=== PATIENT | male | born 1975 | race Hispanic/Latino ===

== ENCOUNTER → 2016-12-28 | Outpatient (CLI) | payer OTHER ==
[~2016-12-28] MED LIST: CIPR500T89 PO; EZET10TA PO; KETO10TAB PO; SIMV40TA2 PO
[2016-12-29 14:11] LABS: PSA TOTAL 1.1 ng/mL (0.0-4.0)
== END ==
LOC: M SMT 09:57
PROVIDERS: ATTEND Nurse Practitioner Family
DX: N40.2 Nodular prostate without lower urinary tract symptoms (principal)
CPT/HCPCS: 36415; 84154; G0463

== ENCOUNTER 2017-01-11 15:13 | Emergency (ER) | payer OTHER ==
[~2017-01-11] VITALS: Ht 165.1 cm; Wt 86.2 kg
[2017-01-11] MEDS ORDERED: EZET10TA PO (15:32)
[2017-01-11] MEDS ORDERED: SIMV40TA2 PO (15:32)
[2017-01-11] MEDS ORDERED: CIPR500T89 PO ×2 (15:32→20:00)
[2017-01-11] MEDS ORDERED: fentaNYL 100 MCG/2 ML INJECTION (J3010) IV ONE ×2 (16:30→18:45)
[2017-01-11] MEDS ORDERED: ONDANSETRON 4MG/2ML VIAL (J2405) IV ONE (16:30)
[2017-01-11] MEDS ORDERED: NS 1,000 ML IV ONE (16:30)
[2017-01-11 16:37] LABS: BASO % 0.3 % (0.0-1.0); EOS # 0.1 K/mm3 (0.0-0.50); EOS % 0.9 % (0.0-3.0); LARGE UNSTAINED CELL # 0.1 K/mm3 (0.0-0.4); LARGE UNSTAINED CELL % 0.5 % (0.0-4.0); LYMPH # 0.8 K/mm3 (1.5-4.5); LYMPH % 4.6 % (24.0-44.0); MEAN CORPUSCULAR HEMOGLOBIN 31.7 pg (27.0-33.0); MEAN CORPUSCULAR HGB CONC 34.9 g/dl (32.0-36.5); MEAN CORPUSCULAR VOLUME 90.9 fl (80.0-96.0); MONO # 0.5 K/mm3 (0.0-0.8); MONO % 2.9 % (0.0-5.0); NEUTROPHILS # 14.4 K/mm3 (1.8-7.7); NEUTROPHILS % 90.8 % (36.0-66.0); PLATELET COUNT, AUTOMATED 172 k/mm3 (150-450); RED CELL DISTRIBUTION WIDTH 12.7 % (11.5-14.5); WHITE BLOOD COUNT 15.8 K/mm3 (4.0-10.0)
[2017-01-11 16:56] LABS: ANION GAP 11 MEQ/L (8-16); BLOOD UREA NITROGEN 11 MG/DL (7-18); CARBON DIOXIDE LEVEL 23 MEQ/L (21-32); CHLORIDE LEVEL 106 MEQ/L (98-107); CREATININE FOR GFR 1.17 MG/DL (0.70-1.30); GLOMERULAR FILTRATION RATE > 60.0 (>60); GLUCOSE, FASTING 119 MG/DL (70-105); POTASSIUM SERUM 3.7 MEQ/L (3.5-5.1); SODIUM LEVEL 140 MEQ/L (136-145)
[2017-01-11] MEDS ORDERED: ISOVUE-370 76% 100ML VIAL (Q9967) As Ordered ONE (17:01)
--- NOTE | 2017-01-11 18:25 | REP ---
CT study of the pelvis with IV but without oral contrast: History: The patient is status post prostate biopsy, evaluate for hemorrhage. Findings: There is diverticulosis affecting the sigmoid and distal descending segments of the colon without CT evidence of diverticulitis. No free air is seen. Normal appendix is observed. There is no evidence of pelvic floor or extraperitoneal hematoma. There is some post biopsy edema in the perirectal fat particularly anteriorly where there are also several bubbles of post biopsy air between the rectum and the prostate. Prostate gland is mildly enlarged. There is some peripheral periprostatic contrast enhancement consistent with normal periprostatic vessels. A few dystrophic calcifications are visible in the prostate. Urinary bladder is intact. Impression: No evidence of hematoma seen. Postbiopsy changes as expected in the periprostatic and perirectal soft tissues. Signed by Ian Rojo MD 01/11/2017 07:02 P
[2017-01-11] MEDS ORDERED: KETOROLAC 30 MG/ML VIAL (J1885) IV ONE (19:45)
[2017-01-11] MEDS ORDERED: KETO10TAB PO (20:07)
[2017-01-11] MEDS ORDERED: CIPROFLOXACIN 500 MG TAB PO ONE (20:15)
[2017-01-11 20:32] VITALS: BP 130/65
== END 2017-01-11 20:34 | disposition home or self-care (01) ==
LOC: M ED 16:55
DX: G89.18 Other acute postprocedural pain (principal)
CPT/HCPCS: 72193; 80048; 81001; 83605; 85025; 86140; 87040; 87086; 96361; 96374; 96375; 96376; 99284; J1885; J2405; J3010; Q9967

== ENCOUNTER → 2017-01-11 | Outpatient (CLI) | payer OTHER ==
--- NOTE | 2017-01-11 13:36 | REP ---
Prostate sonography: History: Elevated PSA Sonographic findings: Trans rectal prostate sonography demonstrates unremarkable seminal vesicles. Prostate gland is heterogeneously enlarged with calcifications and cystic changes noted. Glandular dimensions are measured at 4.6 x 3.0 x 5.6 cm with a calculated glandular volume of 39.4 ml. Transrectal sonographic guidance provided to Dr. Schmitt who performed trans rectal ultrasound guided needle biopsy procedure . Signed by Ian Rojo MD 01/11/2017 01:28 P
== END ==
LOC: M SMT PRO 10:53
PROVIDERS: ATTEND Nurse Practitioner Family
DX: R97.20 Elevated prostate specific antigen [PSA] (principal); D29.1 Benign neoplasm of prostate; Z79.899 Other long term (current) drug therapy